=== PATIENT | female | born 1980 | race Caucasian/White ===

== ENCOUNTER 2024-03-07 16:30 | Inpatient (IN) | payer BC ==
[2024-03-17] MEDS ORDERED: Heparin 5,000 UNITS/ML VIAL ONE (06:11)
[2024-03-17] MEDS ORDERED: CEFAZOLIN 2 GM VIAL ONE (06:11)
[2024-03-17] MEDS ORDERED: Acetaminophen 500 MG TAB ONE (06:11)
[2024-03-17] MEDS ORDERED: Ketorolac Tromethamine 30 MG (1 mL) VIAL ONE (06:11)
[2024-03-17] MEDS ORDERED: Indocyanine Green 25 MG/10 ML VIAL ONE (06:37)
[2024-03-17] MEDS ORDERED: Bupivacaine 0.25% HCL 30 ML VIAL ONE ×2 (06:38→07:09)
[2024-03-17] MEDS ORDERED: EPINEPHrine 1 MG/ML VIAL ONE (06:38)
[2024-03-17] MEDS ORDERED: Scopolamine 1 mg/72 hour Patch ONE (07:06)
[2024-03-17] MEDS ORDERED: Midazolam HCl 2 mg/2 ml Vial ONE ×2 (07:06→07:08)
[2024-03-17] MEDS ORDERED: fentaNYL 50 mcg/mL 1 mL Vial ONE (07:08)
[2024-03-17] MEDS ORDERED: Rocuronium Bromide 10 MG/ML (10ML VIAL) ONE (07:16)
[2024-03-17] MEDS ORDERED: fentaNYL PF 100 MCG/2 ML SYRINGE ONE (07:16)
[2024-03-17] MEDS ORDERED: HYDROmorphone 2 MG/ML VIAL ONE (07:16)
[2024-03-17] MEDS ORDERED: Dexamethasone 20 MG/5 ML VIAL ONE (07:16)
[2024-03-17] MEDS ORDERED: PHENYLEPHRINE-NS 100 MCG/ML 10 ML SYRINGE ONE (07:16)
[2024-03-17] MEDS ORDERED: Lidocaine 1% PF 5 ML VIAL ONE (07:16)
[2024-03-17] MEDS ORDERED: Glycopyrrolate 0.2 MG/ML 5 ML SYRINGE ONE (07:16)
[2024-03-17] MEDS ORDERED: PROPOFOL 20 ML ONE (07:16)
[2024-03-17] MEDS ORDERED: Ondansetron PF 4 MG/2 ML Vial ONE (07:16)
[2024-03-17] MEDS ORDERED: Lidocaine 2% 6 ML (Jelly) SYR ONE (07:17)
[2024-03-17] MEDS ORDERED: Sodium Chloride 0.9% 200 ML ONE (07:27)
[2024-03-17] MEDS ORDERED: Lidocaine 1% (PF) 30 ML VIAL ONE (07:48)
[2024-03-17] MEDS ORDERED: SUGAMMADEX SODIUM 200 MG/2 ML VIAL ONE (08:13)
[2024-03-17] MEDS ORDERED: Labetalol HCl 100 MG/20 ML VIAL ONE (09:22)
[2024-03-17] MEDS ORDERED: Ipratropium/Albuterol 3 ML NEB NEB PRN (10:07)
[2024-03-17] MEDS ORDERED: Dextrose 5% in Water 1,000 ML IV PRN (10:07)
[2024-03-17] MEDS ORDERED: Dextrose 50% Abboject 50 ML SYRINGE SLOW IVP PRN (10:07)
[2024-03-17] MEDS ORDERED: hydrALAZINE 20 MG/ML VIAL SLOW IVP PRN (10:07)
[2024-03-17] MEDS ORDERED: traMADol HCl 50 MG TAB PO PRN (10:07)
[2024-03-17] MEDS ORDERED: diphenhydrAMINE 50 MG/ML VIAL IVP PRN (10:07)
[2024-03-17] MEDS ORDERED: Glucagon 1 MG/ML KIT IM PRN (10:07)
[2024-03-17] MEDS: Ketorolac Tromethamine 30 MG (1 mL) VIAL IVP SCH (12:12)
[2024-03-17] MEDS: Pantoprazole 40 MG VIAL IVP SCH (12:12)
[2024-03-17] MEDS: Promethazine HCl 25 MG/ML VIAL IM PRN (12:18)
[2024-03-17] MEDS: D5 1/2 NS w/20 mEq KCL 1,000 ML IV SCH (12:28)
[2024-03-17] MEDS: Gabapentin 300 MG CAP PO SCH ×2 (12:28→20:12)
[2024-03-17 13:50] VITALS: BMI 52.8
[2024-03-17] MEDS: Acetaminophen 650 MG/20.3 ML UDCUP PO SCH (15:26)
[2024-03-17] MEDS: oxyCODONE 5 MG TAB PO PRN (15:33)
[2024-03-17] MEDS: Ondansetron PF 4 MG/2 ML Vial IVP PRN (15:33)
[2024-03-17] MEDS: Enoxaparin 40 MG (0.4 mL) SYRINGE SC SCH (20:12)
[2024-03-17] MEDS: Sertraline 25 MG TAB PO SCH (20:12)
[2024-03-18 05:24] LABS: #Basophils Less than 0.03 10x3/uL (0.0-0.2); #Eosinophils Less than 0.03 10x3/uL (0.0-0.7); %Basophils 0.1 % (0.0-1.0); %Lymphocytes 9.4 % (21.0-51.0); %Neutrophils 84.1 % (42.0-75.0); Hematocrit 37.9 % (36.0-47.0); Hemoglobin 12.2 g/dL (12.0-16.0); Mean Corpuscular HGB CONC 32.2 g/dL (32.0-36.0); Mean Corpuscular Hemoglobin 28.4 pg (27.0-31.0); Mean Corpuscular Volume 88.1 fL (78.0-98.0); Mean Platelet Volume 9.7 fL (7.4-10.4); Platelet Count 289 10x3/uL (130-400); RBC Distribution Width 13.6 % (11.5-14.5)
[2024-03-18 05:42] LABS: Anion Gap 11 mmol/L (10-20); BUN (Urea Nitrogen) 13 mg/dL (7.0-18.7); Calc. Creatinine Clearance 207 mL/min (70-130); Carbon Dioxide 24 mmol/L (22-29); Chloride 109 mmol/L (98-107); Estimated GFR 107; Glucose 96 mg/dL (70-105); Potassium 4.5 mmol/L (3.5-5.1); Sodium 139 mmol/L (136-145)
[2024-03-18] MEDS: Pantoprazole 40 MG VIAL IVP SCH (08:44)
[2024-03-18 12:23] VITALS: BP 102/63; TEMP 97.6
== END 2024-03-18 15:40 | disposition home or self-care (01) | DRG 621 ==
LOC: EDSTATUS 16:30 → SURG A 03-17 05:53
PROVIDERS: ADMIT Specialist; ATTEND Specialist
PROC: 0DB64Z3 Excision of Stomach, Percutaneous Endoscopic Approach, Vertical (ICD-10-PCS; principal; 2024-03-17)
PROC: 8E0W0CZ Robotic Assisted Procedure of Trunk Region, Open Approach (ICD-10-PCS; 2024-03-17)
DX: E66.01 Morbid (severe) obesity due to excess calories (principal); K29.50 Unspecified chronic gastritis without bleeding; Z68.43 Body mass index [BMI] 50.0-59.9, adult; E78.00 Pure hypercholesterolemia, unspecified; Z90.710 Acquired absence of both cervix and uterus; Z90.79 Acquired absence of other genital organ(s); Z90.722 Acquired absence of ovaries, bilateral; Z88.8 Allergy status to other drugs, medicaments and biological substances; B96.81 Helicobacter pylori [H. pylori] as the cause of diseases classified elsewhere
CPT/HCPCS: 36415; 80048; 85025; 88307; C1889; J0171; J0665; J1100; J1171; J1644; J1650; J1885; J2250; J2405; J2470; J2550; J2704; J3010; J3480; S2900

== ENCOUNTER 2024-03-11 10:00 | Outpatient (CLI) | payer BC ==
[2024-03-11 17:03] LABS: #Basophils 0.05 10x3/uL (0.0-0.2); %Basophils 0.4 % (0.0-1.0); %Eosinophils 0.9 % (0.0-10.0); %Lymphocytes 21.2 % (21.0-51.0); %Monocytes 4.7 % (0.0-10.0); %Neutrophils 72.2 % (42.0-75.0); Hematocrit 40.1 % (36.0-47.0); Hemoglobin 12.9 g/dL (12.0-16.0); Mean Corpuscular HGB CONC 32.2 g/dL (32.0-36.0); Mean Corpuscular Hemoglobin 28.3 pg (27.0-31.0); Mean Corpuscular Volume 87.9 fL (78.0-98.0); Mean Platelet Volume 9.5 fL (7.4-10.4); Platelet Count 294 10x3/uL (130-400); RBC Distribution Width 13.8 % (11.5-14.5); Red Blood Cell (RBC) Count 4.56 mill/uL (4.20-5.40)
[2024-03-11 17:22] LABS: ALT (SGPT) 19 U/L (8-55); AST (SGOT) 21 U/L (5-34); Alkaline Phosphatase 127 U/L (40-110); Anion Gap 14 mmol/L (10-20); BUN (Urea Nitrogen) 33 mg/dL (7.0-18.7); Bilirubin, Total 0.4 mg/dL (0.2-1.2); Calc. Creatinine Clearance 0 mL/min (70-130); Calcium 9.6 mg/dL (7.8-10.44); Carbon Dioxide 25 mmol/L (22-29); Chloride 103 mmol/L (98-107); Estimated GFR 89; Globulin 3.8 g/dL (2.4-3.5); Glucose 85 mg/dL (70-105); Protein, Total 7.8 g/dL (6.0-8.3); Sodium 138 mmol/L (136-145)
[2024-03-11 17:27] LABS: Hemoglobin A1c 5.4 % (4.0-6.0)
== END 2024-03-11 15:00 | disposition home or self-care (01) ==
LOC: LABBT 10:00
PROVIDERS: ATTEND Specialist
DX: Z01.818 Encounter for other preprocedural examination (principal); E66.01 Morbid (severe) obesity due to excess calories
CPT/HCPCS: 80053; 83036; 85025; 93005; 93010